=== PATIENT | male | born 1965 | race Caucasian/White ===

== ENCOUNTER 2018-02-27 16:47 | Emergency (ER) | payer OTHER ==
[~2018-02-27] VITALS: Ht 172.7 cm; Wt 96.7 kg
[~2018-02-27 16:47] MED LIST: ASPCH81X PO; CLC/300 PO
[2018-02-27 16:53] VITALS: BP 146/89; PULSE 79; TEMP 36.4; O2SAT 97; Ht 172.7 cm; Wt 96.7 kg
[2018-02-27] MEDS ORDERED: AZITHROMYCIN 250 MG TAB PO STA (17:23)
[2018-02-27] MEDS ORDERED: OFLOXACIN 0.3% OP SOLN 5 ML BTL OTR STA (17:23)
[2018-02-27] MEDS ORDERED: AZIT-60 PO (17:27)
[2018-02-27] MEDS ORDERED: OFLO0.3D4 OTR (17:27)
--- NOTE | 2018-02-27 17:29 | EMERGENCY ROOM VISIT NOTE ---
History First contact with patient: 17:04 Chief Complaint: EAR PAIN Stated Complaint: LEFT EAR PAIN History of Present Illness The patient is a 52 year old male who presents to the Emergency Room via private vehicle with complaints of "right ear pain". This patient states that he has been doing a lot of diving recently, and using Q-tips in the right ear. He states that he will dive at times up to 30 feet. No ear protection is utilized. He states that he has been experiencing a pressure in the right ear for the entire month, and also notes that at one point he woke up and there was some wet stuff on the pillow from the ear. He questions if he ruptured his eardrum. He rates the overall pain as a 4/10. No fevers or chills. Review of Systems A complete 6-point Review of Systems was discussed with the patient, with pertinent positives and negatives listed in the History of Present Illness. All remaining Review of Systems questions can be considered negative unless otherwise specified. Social History Smoking Status: Former Smoker Alcohol Use: none Marital Status: Occupation Status: employed Current/Historical Medications Scheduled Aspirin (Aspirin Chewable), 81 MG PO DAILY Azithromycin (Zithromax), 250 MG PO DAILY Ofloxacin (Otic) (Floxin Otic), 3 DROPS OTR DAILY Physical Exam Vital Signs Date Time Temp Pulse Resp B/P (MAP) Pulse Ox O2 Delivery O2 Flow Rate FiO2 02/27/18 16:53 36.4 79 16 146/89 97 Room Air Physical Exam VITAL SIGNS - Vital signs and nursing notes were reviewed. Stable. Afebrile. GENERAL -52-year-old male appearing his stated age who is in no acute distress. Communicates well with provider and answers questions appropriately. SKIN - Without rashes. Skin overlying the right ears unremarkable. HEAD - NC/AT. EYES - PERRL with EOMI bilaterally. Sclera anicteric. EARS - No deformities of external structures noted on gross examination bilaterally. Left ear unremarkable. No pain elicited with palpation of the tragus bilaterally of the left ear. Right ear elicits an erythematous proximal ear canal as well as what appears to be a perforated tympanic membrane, with erythema throughout this region. No drainage at this time. NOSE - Midline and without cyanosis. No epistaxis or purulent drainage noted. Septum midline without deviation or septal hematoma noted. MOUTH/OROPHARYNX - Without perioral cyanosis. NECK - Neck with FROM. Supple to palpation. No lymphadenopathy noted. No nuchal rigidity. Medical Decision & Procedures Medications Administered Medications (Trade) Dose Ordered Sig/Lulú Route Start Time Stop Time Status Last Admin Dose Admin Ofloxacin (Ocuflox 0.3% Oph Soln) 1 drops NOW STAT OTR 02/27/18 17:23 02/27/18 17:25 DC 02/27/18 17:50 1 DROPS Azithromycin (Zithromax Tab) 500 mg NOW STAT PO 02/27/18 17:23 02/27/18 17:25 DC 02/27/18 17:50 500 MG Medical Decision Patient was seen and evaluated as above in D6. Review was performed of nursing notes and vital signs. After obtaining a thorough history and physical examination the above work up was performed. He presents with today with right ear pain. He is nontoxic on examination. Examination is concerning for that of perforated tympanic membrane as well as otitis externa may have developed after this occurred. I will treat this with ofloxacin eardrops, as well as systemic antibiotics such as azithromycin. This was chosen secondary to his allergies. He is also to use Sudafed [id number]. He is to follow-up with ear nose and throat/family doctor or return with worsening. [facility] will [facility] to also be seen. He was educated upon not going diving or being underwater with right ear condition. No evidence of mastoiditis. The patient was educated upon management, educated upon todays findings/results, educated upon symptoms in which to return, had questions answered prior to discharge, and was discharged home in good condition. It is important note that ofloxacin ophthalmic eyedrops were provided for use in the ear secondary to the eardrops being out of stock here and recommendation pharmacy to substitute with the eyedrops for use in the ear. Case discussed with the attending physician. In the evaluation and treatment of this patient the following differential diagnoses were entertained: Tympanic membrane perforation, otitis externa, otitis media, mastoiditis, among others. Impression Primary Impression: Ear pain, right Departure Information Dispostion Home / Self-Care Condition GOOD Prescriptions Azithromycin (ZITHROMAX) 250 Mg Tab 250 MG PO DAILY, #4 TAB Prov: Darius Keller, HUMBERTO 02/27/18 Ofloxacin (Otic) (FLOXIN OTIC) 0.3 % Chandler 3 DROPS OTR DAILY for 7 Days, #315 ML Prov: Darius Keller PA-C 02/27/18 Referrals Josiah Jovel M.D. (PCP) Elma Key M.D. Patient Instructions My [facility] Additional Instructions You have been treated in the Emergency Department for your pain with suspected TM perforation. You were prescribed ofloxacin to be taken as 2-3 drops daily until the ear heals and at this time I provided 7 days worth until he can follow-up either with the family doctor or ear nose and throat doctor. This is an antibiotic. All antibiotics have the potential to cause diarrhea. Stop this medication and contact a medical provider if you were to develop any significant adverse side effects including: wheezing, shortness of breath, passing out, vomiting, or a diffuse rash. Always take antibiotics as directed and COMPLETE the ENTIRE course regardless of the improvement of your symptoms. Please no underwater swimming or getting water in the ear until this heals. Please also take azithromycin daily. Your given the first dose here with the remainder at the pharmacy to be taken each day. Next dose tomorrow at 6 PM. For pain and fever control, you can use the following [id number] medicines (if >12 yo): - Regular strength (325mg/tab) Tylenol (acetaminophen) 2 tabs every 4-6 hours as needed. Do not exceed 12 tablets in a 24 hour period. Avoid taking more than 3 grams (3000 mg) of Tylenol per day. This includes any other sources of acetaminophen you may take on a regular basis. - Regular strength (200 mg/tab) Advil (ibuprofen) 1-2 tabs every 4-6 hours as needed. Do not exceed a dose of 3200 mg per day. You may also use [id number] Sudafed for your congestion in the ear. Please use this according to package insert. You should follow-up with your Primary Care Provider from today's Emergency Department visit. Please also call Dr. Key to schedule follow-up. Return to the emergency department if you develop the following symptoms despite treatment course outlined above: headache, fever, intractable pain, increased redness, swelling, or purulent discharge.
== END 2018-02-27 17:51 | disposition home or self-care (01) ==
LOC: C.EDB 16:48 → C.EDD 17:51
DX: H92.01 Otalgia, right ear (principal); Z87.891 Personal history of nicotine dependence; Z79.82 Long term (current) use of aspirin; Z79.899 Other long term (current) drug therapy